=== PATIENT | female | born 1995 | race Caucasian/White ===

== ENCOUNTER 2020-06-23 13:22 | Emergency (ER) | payer OTHER ==
[~2020-06-23] VITALS: Ht 157.5 cm; Wt 78.7 kg
[2020-06-23 13:22] VITALS: BP 129/86
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
[2020-06-23] MEDS ORDERED: NAPR-514 PO (14:24)
[2020-06-23] MEDS ORDERED: CYCL-331 PO (14:24)
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
[2020-06-23] MEDS ORDERED: ONDA4TAB12 PO (14:27)
== END 2020-06-23 14:30 | disposition home or self-care (01) ==
LOC: ER 13:22
DX: R51.9 Headache, unspecified (principal); R11.2 Nausea with vomiting, unspecified; M54.89 Other dorsalgia; J45.909 Unspecified asthma, uncomplicated; V43.62XA Car passenger injured in collision with other type car in traffic accident, initial encounter; Y93.89 Activity, other specified; Y92.89 Other specified places as the place of occurrence of the external cause; Y99.8 Other external cause status
CPT/HCPCS: 70450; 99284-25